=== PATIENT | female | born 1985 ===

== ENCOUNTER 2018-01-26 18:30 | Emergency (ER) | payer OTHER ==
[2018-01-26] MEDS ORDERED: Sodium Chloride 0.9% 1,000 ML IV STA (19:28)
[2018-01-26] MEDS ORDERED: Dexamethasone 10 MG in Sodium Chloride 0.9% 50 ML IV ONE (19:29)
--- NOTE | 2018-01-26 20:12 | ED PDOC ---
HPI: CCC, URI, Sore Throat Chief Complaint (Nursing): ENT Problem History Per: Patient History/Exam Limitations: no limitations Have you had recent travel within the past 21 days to any of the following countries: [place], [place], [place] or [place]?: No Onset/Duration Of Symptoms: Days (2) Associated Symptoms: Fever, Chills, Sore Throat Additional Complaint(s): No PMHx presenting with sore throat x 2 days, states its worse on the L side, worse with swallowing, states she's unable to swallow food normally because of pain, feels as though her L side of face is swollen and also has ear pain. No neck stiffness. Fever of 103 at home yesterday. No recent travel. PMD: Dr. Navarro Past Medical History Reviewed: Historical Data, Nursing Documentation, Vital Signs Vital Signs: Last Vital Signs Temp 99.2 F 01/26/18 18:40 Pulse 106 H 01/26/18 18:40 Resp 20 01/26/18 18:40 BP 129/87 01/26/18 18:40 Pulse Ox 100 01/26/18 18:40 - Medical History PMH: No Chronic Diseases - Family History Family History: States: Unknown Family Hx - Home Medications Home Medications: Ambulatory Orders Medication Instructions Recorded Ibuprofen [Motrin Tab] 600 mg PO Q6 #30 tab 01/26/18 - Allergies Allergies/Adverse Reactions: Allergies Allergy/AdvReac Type Severity Reaction Status Date / Time No Known Allergies Allergy Verified 01/26/18 18:40 Review of Systems ROS Statement: Except As Marked, All Systems Reviewed And Found Negative Constitutional: Positive for: Fever ENT: Positive for: Ear Pain, Throat Pain, Throat Swelling Respiratory: Negative for: Cough, Shortness of Breath Physical Exam - Reviewed Nursing Documentation Reviewed: Yes Vital Signs Reviewed: Yes - Physical Exam Appears: Positive for: Well, Non-toxic, No Acute Distress Head Exam: Positive for: ATRAUMATIC, NORMAL INSPECTION, NORMOCEPHALIC Skin: Positive for: Normal Color, Warm, DRY Eye Exam: Positive for: EOMI, Normal appearance, PERRL ENT: Positive for: TM Is/Are (normal), Tonsillar Exudate (L sided). 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 Navarro Disposition - Clinical Impression Clinical Impression: Streptococcal sore throat - Patient ED Disposition Is Patient to be Admitted: No - Disposition Referrals: Ramon Calderon MD [Family Provider] - Disposition: Routine/Home Disposition Time: 21:30 Condition: IMPROVED Prescriptions: Ibuprofen [Motrin Tab] 600 mg PO Q6 #30 tab Instructions: Strep Throat (DC), Sore Throat, Adult (DC) Forms: [employer] (Citizen [place]) Print Language: [place]
[2018-01-26] MEDS ORDERED: Penicillin G Benzathine 2.4 Mill Unit/4 ml Syr IM ONE (20:55)
[2018-01-26 21:50] VITALS: BP 121/74; PULSE 94; RESP 18; TEMP 98.3; O2SAT 99
== END 2018-01-26 21:58 | disposition home or self-care (01) ==
LOC: H.ER 18:30
DX: J02.0 Streptococcal pharyngitis (principal)
CPT/HCPCS: 81025; 87070; 87430; 96361; 96372; 96374; 96375; 99283; J0561; J1100; J1885; J7030